=== PATIENT | male | born 1985 ===

== ENCOUNTER 2019-08-10 12:18 | Emergency (ER) | payer OTHER ==
[~2019-08-10] VITALS: Ht 197 cm; Wt 82.0 kg
[2019-08-10 12:24] VITALS: BP 139/87; TEMP 97.4
[2019-08-10 13:37] VITALS: PULSE 81
== END 2019-08-10 13:37 | disposition home or self-care (01) ==
LOC: COL.ER 12:18
DX: S76.311A Strain of muscle, fascia and tendon of the posterior muscle group at thigh level, right thigh, initial encounter (principal); X50.9XXA Other and unspecified overexertion or strenuous movements or postures, initial encounter; Y93.66 Activity, soccer